=== PATIENT | female | born 1975 | race Caucasian/White ===

== ENCOUNTER 2020-06-19 13:19 | Outpatient (CLI) | payer MEDICAID, SELFPAY ==
--- NOTE | 2020-06-19 13:30 | USCV_ITS ---
Violetta Hurtado Age: 45 Gender: F : 1975 Exam Date: 06/19/2020 13:53 Ordering Phys: Jayant Wild M.D ([email or web address]) Technologist: Britney Wilson [place] [facility] [place] Ind[place]: CP BP: / HR: 82 Rhythm: Sinus Technical Quality: Fair MEASUREMENTS (Male / Female) Normal Values 2D ECHO LV Diastolic Diameter PLAX 3.5 cm 4.2 - 5.9 / 3.9 - 5.3 cm LV Systolic Diameter PLAX 2.9 cm LV Chamber Size 4.4 cm IVS Diastolic Thickness 0.9 cm 0.6 - 1.0 / 0.6 - 0.9 cm IVS Systolic Thickness 1.2 cm LVPW Diastolic Thickness 0.8 cm 0.6 - 1.0 / 0.6 - 0.9 cm LVPW Systolic Thickness 1.0 cm RV Chamber Size 1.8 cm LVOT Diameter 2.0 cm LV Ejection Fraction 2D Teich 38.8 % LA Diameter 2.0 cm LA Width 2.4 cm LA Height 2.8 cm RA Width 1.3 cm RA Height 3.3 cm M-MODE LV Diastolic Diameter MM 4.2 cm 4.2 - 5.9 / 3.9 - 5.3 cm LV Systolic Diameter MM 3.2 cm LV Ejection Fraction MM Teich 47.7 % IVS Diastolic Thickness MM 0.9 cm 0.6 - 1.0 / 0.6 - 0.9 cm IVS Systolic Thickness MM 1.0 cm LVPW Diastolic Thickness MM 0.6 cm 0.6 - 1.0 / 0.6 - 0.9 cm LVPW Systolic Thickness MM 0.9 cm RV Diastolic Diameter MM 0.6 cm Aortic Annulus Diameter 2.1 cm LA Ao Ratio MM 1.0 MV E Point Septal Separation 0.1 cm DOPPLER AV Peak Velocity 114.0 cm/s LVOT Peak Velocity 97.7 cm/s AV Area Cont Eq vti 3.0 cm squared AV Area Cont Eq pk 2.8 cm squared MV Area PHT 4.8 cm squared Mitral E to A Ratio 1.0 MV E' Velocity 31.0 cm/s Mitral E to MV E' Ratio 6.2 Mitral E to LV E' Lateral Ratio 6.0 Mitral E to LV E' Septal Ratio 6.3 TV Peak E Velocity 57.0 cm/s Right Atrial Pressure 3.0 mmHg PV Peak Velocity 62.0 cm/s FINDINGS Left Ventricle Normal left ventricular size, systolic function with no regional wall motion abnormalities. LVEF is 50-55%. Normal diastolic filling pattern. Right Ventricle The right ventricle is normal in size and function. Right Atrium The right atrium is normal in size. Left Atrium The left atrium is normal in size. Mitral Valve Structurally normal mitral valve without significant stenosis or prolapse. There is no mitral regurgitation. Aortic Valve Structurally normal aortic valve without significant sclerosis or stenosis. There is no aortic regurgitation. Tricuspid Valve Structurally normal tricuspid valve without significant stenosis or regurgitation. Insufficient TR jet to calculate RVSP Pulmonic Valve Structurally normal pulmonic valve without significant stenosis. There is no pulmonic regurgitation. Pericardium Normal pericardium without effusion. Aorta Normal ascending aorta dimension. CONCLUSIONS LV systolic function is normal with EF of 50-55% Diastolic function is normal No significant valvular heart disease is noted No comparison studies are available Jayant Wild MD (Electronically Signed) Final Date: 01 Jul 2020 18:20 S
== END 2020-06-19 13:20 | disposition home or self-care (01) ==
LOC: US 13:22
PROVIDERS: PCP Physician Assistant; Visit Provider Internal Medicine
DX: R07.9 Chest pain, unspecified (principal)
CPT/HCPCS: 93306

== ENCOUNTER 2020-08-17 07:31 | Outpatient (CLI) | payer MEDICAID, SELFPAY ==
[2020-08-17 07:36] VITALS: BMI 19.8
--- NOTE | 2020-08-17 08:55 | ECG_ITS ---
[facility] Test Date: 2020-08-17 Pat Name: Violetta Hurtado Department: Room: Gender: Female Hog Scalder: : 1975 Requested By: Jayant Wild Order Number: [id number] Craig MD: Jayant Wild M.D. Interpretive Statements NAME OF STUDY: LEXISCAN SESTAMIBI STRESS TEST INDICATION: [Shortness of Breath; Chest Pain, ] Procedure: At the baseline, the blood pressure was 100/69 mmHg with a heart rate of 56 bpm. The electrocardiogram showed sinus bradycardia, normal axis with normal ST and T's. The Lexiscan was infused over a period of 20 seconds. A total of 0.4 mg of Lexiscan was infused. The stress phase was continued for a total of 5 minutes. Heart rate was at the end of stress phase was 74 bpm and a blood pressure of 95/51 mmHg. The EKG at the peak infusion revealed since normal sinus rhythm with no significant ST-T wave changes. Sestamibi was injected 20 seconds after the Lexiscan infusion. Blood pressure at the end of recovery phase was 96/51 mmHg with a heart rate of 70 bpm. Conclusion: 1. Normal EKG response to Lexiscan infusion 2. No Lexiscan induced chest pain or cardiac arrhythmia. 3. Normal blood pressure and heart rate response. 4. Sestamibi/sestamibi perfusion scan pending; see separate report. Electronically Signed On 09-25-2020 15:15:20 CDT by Jayant Wild M.D. [email or web address]
--- NOTE | 2020-08-17 08:56 | NMCV_ITS ---
NM caesar perf SPECT r/s* [id number] Violetta Hurtado Age: 45 Gender: F : 1975 Exam Date: 08/17/2020 08:53 Ordering Phys: Jayant Wild M.D ([email or web address]) Technologist: ALICE Maloney Exam Location: [facility] Indications: CHEST PAIN STRESS TEST Please see separate stress test report in [facility] for full findings IMAGE PROTOCOL Rest/Stress 1 Radiopharmaceutical Dose (mCi) Administration Site Administered by Rest: Tc-99m 10.8 IV ALICE Morgan Sestamibi Stress:Tc-99m 32.3 IV ALICE Morgan Sestamibi Rest: 17-Aug-2020 60 Discovery 630 Stress: 17-Aug-2020 30 Discovery 630 Images obtained in supine and prone position. Supine position only as patient was unable to lay prone. SPECT RESULTS Technical Quality: Excellent Raw Data Analysis: Normal Image Corrections: No attenuation or motion correction applied Summed Stress Score: 2 Summed Rest Score: 4 Summed Difference Score: 1 PERFUSION FINDINGS There is a small in size mostly reversible perfusion defect in the apical lateral wall. This likely represents a small sized infarct with significant corey-infarct ischemia. However the size of overall abnormality is small. FUNCTIONAL RESULTS (calculated via Gated SPECT) Stress Image LV EF (%): 82 Stress EDV (mL):83 TID: 0.86 Stress ESV (mL):15 FUNCTIONAL FINDINGS: There is normal left ventricular systolic function. IMPRESSIONS 1. Abnormal myocardial perfusion imaging with mostly reversible, small sized area of perfusion defect in the apical lateral wall. Clinical correlation is required 2. LV systolic function is normal Jayant Wild MD (Electronically Signed) Final Date: 17 August 2020 18:33 S
[2020-08-17] MEDS: regadenoson 0.4 Mg/5 ml Syringe IVP (09:34)
[2020-08-17 09:35] VITALS: BP 96/51; PULSE 69
== END 2020-08-17 07:32 | disposition home or self-care (01) ==
PROVIDERS: PCP Physician Assistant; Visit Provider Internal Medicine
DX: R06.02 Shortness of breath (principal); R07.9 Chest pain, unspecified; R00.2 Palpitations
CPT/HCPCS: 78452; 93017; A9500; J2785

== ENCOUNTER → 2020-11-16 16:10 | Outpatient (BNVA) | payer MEDICAID, SELFPAY | PROVIDERS: PCP Physician Assistant; Visit Provider Orthopaedic Surgery | DX: Z01.812 Encounter for preprocedural laboratory examination (principal); Z20.822 Contact with and (suspected) exposure to COVID-19; M67.432 Ganglion, left wrist | CPT/HCPCS: 87635 ==

== ENCOUNTER 2020-11-22 10:52 | Day surgery (SDC) | payer MEDICAID, SELFPAY ==
[2020-11-21 13:19] VITALS: BMI 21.2
[2020-11-22] VITALS (14 sets, daily range): BP systolic 92–117; BP diastolic 48–83; PULSE 44–74; RESP 12–25; TEMP 36.1–36.6; O2SAT 90–99
[2020-11-22] MEDS: sodium chloride 0.9% 1,000 ML 30 ML IV (11:38)
--- NOTE | 2020-11-22 11:42 | P.ANESASSM_ITS ---
Pre-Anesthetic Assessment Pre-Anesthetic Assessment: Height/Weight: Height 1.6 m Weight 54.431 kg Temp Pulse Resp BP Pulse Ox 97.6 F 58 L 15 109/59 94 11/22/20 11:18 11/22/20 11:18 11/22/20 11:18 11/22/20 11:18 11/22/20 11:18 Preop Diagnosis: Ganglion left wrist Proposed Procedure: Operation Date: 11/22/20 12:55 Proposed Procedures p Excision Of Ganglion Cyst 77033 M67.432(Left) - Yonis Mcleod MD Was Beta Levy taken within 24 hours: N/A Was Clonidine taken within 24 hours: N/A Last intake: Intake Last Liquid Date 11/21/20 Last Liquid Time 23:00 Last Solid Date 11/21/20 Last Solid Time 22:00 Social: Social History: Tobacco and No alcohol Exam: Pre-Anes Outpt Exam: alert, oriented x 3 and regular rate & rhythm Airway: Submandibular: WNL Cervical ROM: WNL MP: 2 Dentition: Full Pulmonary: Pulmonary: COPD CV/HEM: CV/HEM: Murmur GI: GI: GERD Neuropsych: Neuropsych: Anxiety Anesthetic Plan: ASA status: 2 Anesthesia: MAC Risk of > 500 ml blood l oss (7ml/kg in children): No Meds/Allergies Current Medications: Current Medications Generic Name Dose Route Start Last Admin Trade Name Freq PRN Reason Stop Dose Admin Sodium Chloride 1,000 mls @ 30 ml s/hr 11/22/20 11:15 11/22/20 11:38 Sodium Chloride 0.9% IV 11/23/20 11:14 30 mls/hr .Q24H MARION Administration PFSH Anesthesia PFSH: Medical History Anxiety Family history of muscular dystrophy GERD (gastroesophageal reflux disease) GERD (gastroesophageal reflux disease) Heart abnormality Surgical History H/O: hysterectomy Hx of appendectomy Hx of cholecystectomy Family History Father Muscular dystrophy Mother No problems noted. Social History Alcohol intake: never Desire information about substance/drug rehabilitation?: No Data Anesthesia Cardiac Studies: Cardiac Event Monitor 05/28/20
--- NOTE | 2020-11-22 13:47 | W.PM.OPSUD ---
Surgery/Procedure H&P Update DATE OF PROCEDURE: November 22, 2020 DATE H&P PERFORMED: 11/12/20 H&P UPDATE INFORMATION: I have reviewed H&P completed within last 30 days PREOP DIAGNOSIS: Ganglion left wrist PLANNED PROCEDURE: Operation Date: 11/22/20 12:55 Proposed Procedures p Excision Of Ganglion Cyst 17534 M67.432(Left) - Yonis Mcleod MD
--- NOTE | 2020-11-22 14:43 | PM.OP ---
Operative Report Date of procedure: November 22, 2020 Pre-op Diagnosis: Ganglion left wrist Post-op diagnosis: same Post-op Findings: Same Procedure Done: Excision ganglion left wrist Pathology: none sent Surgeon: Yonis Mcleod Anesthesia: General Estimated blood loss (mL): 2 Tourniquet time (min): 3 Complications: None Findings: The patient had a fluid-filled ganglion over the dorsal and ulnar aspect of the left wrist Procedure: The patient was taken to the operating room and given a general anesthesia. She was given 2 g of Ancef. Her left upper extremity was prepped and draped in the usual fashion with a tourniquet on the left arm. A timeout was performed. The tourniquet was inflated to 250 mmHg. A transverse incision was made in line with the skin creases carrying us down to the subcutaneous ganglion. Utilizing blunt hemostat the ganglion is elevated the dorsal ulnar capsule and bordering extensor tendons. The capsular attachment was cauterized with Bovie. The tourniquet was deflated. Hemostasis provided with electrocautery. Skin edges were closed with 3-0 Prolene vertical mattress sutures. The incision was covered with Xeroflo gauze 4 x 4's web roll and a compressive Timmy wrap. She was extubated and taken to recovery in stable condition.
--- NOTE | 2020-11-22 14:46 | P.PCN_ITS ---
PACU note PACU note: VSS, Good respiratory effort, report to BIOMETRIC TECHNICIAN Post-Anesthesia Exam: awake
--- NOTE | 2020-11-22 14:46 | PM.PACU ---
PACU note PACU note: VSS, Good respiratory effort, report to HAND CELL TUBER Post-Anesthesia Exam: awake
[2020-11-22] MEDS: fentaNYL 50 mcg/mL INJ 2mL IVP (15:02)
[2020-11-22] MEDS: HYDROcodone-acetaminophen 7.5-325 mg Tablet 1 TAB PO (15:47)
--- NOTE | 2020-11-22 16:00 | ANE.PACU2 ---
Inpatient post-anesthesia follow up: Airway intact: Yes Vital signs: Temperature 97.9 F Pulse Rate 50 Respiratory Rate 18 Blood Pressure 117/70 Pulse Oximetry 95 Oxygen Delivery Me thod Room Air Oxygen Flow Rate Fraction of Inspir ed Oxygen Hydration adequate: Yes Nausea and vomiting: No Pain level: 1 Mental status: Baseline
== END 2020-11-22 16:08 | disposition home or self-care (01) ==
PROVIDERS: PCP Physician Assistant; Visit Provider Orthopaedic Surgery
PROC: (CPT 25111; principal; 2020-11-22 12:45)
DX: M67.432 Ganglion, left wrist (principal); J44.9 Chronic obstructive pulmonary disease, unspecified; K21.9 Gastro-esophageal reflux disease without esophagitis; F41.9 Anxiety disorder, unspecified
CPT/HCPCS: 25111; J2704; J3010; J7030

== ENCOUNTER 2023-06-13 23:27 | Emergency (ER) | payer MEDICAID, SELFPAY ==
[2023-06-13 23:54] VITALS: BP 103/70; PULSE 98; RESP 22; TEMP 36.8; O2SAT 97; BMI 18.3
--- NOTE | 2023-06-14 00:57 | ED_ITS ---
HPI - URI/Sore Throat General: Chief Complaint: Upper Respiratory Infection Stated Complaint: Right ear pain Time Seen by Provider: 06/14/23 00:08 History of Present Illness: 48-year-old female who has been sick for the last 3 days. She presents with cough, sinus congestion, and right ear pain. She states that her right ear pain is pretty excruciating. She is having trouble hearing out of that side. Cough is nonproductive. Associated symptoms: Reports abdominal pain, chills, chest pain, fever(s) and nausea Review of Systems Const: Reports: fever(s), chills and body aches Card: Reports: chest pain and palpitations GI: Reports: abdominal pain and nausea PFS ED PFSH: Medical History GERD (gastroesophageal reflux disease) Anxiety Heart abnormality Family history of muscular dystrophy GERD (gastroesophageal reflux disease) Surgical History Hx of appendectomy Hx of cholecystectomy H/O: hysterectomy Family History Father Muscular dystrophy Mother No problems noted. Social History Alcohol intake: never Substance/Drug Use: current Substance/Drug use frequency: few times a week Physical Exam Const: COMMON NORMALS: no acute distress GENERAL APPEARANCE: cooperative HENMT: COMMON NORMALS: normocephalic, atraumatic and Normal external nose present HEAD & SCALP: normocephalic and atraumatic FACE & SINUS: normal facial exam NOSE: Normal external nose present and Nasal discharge present TYMPANIC MEMBRANE: TM abnormal TM laterality: right Details: bulging, dull and erythematous THROAT: postnasal drainage Eye: COMMON NORMALS: EOMs intact bilaterally and conjunctivae normal CONJUNCTIVA: Yes conjunctivae normal Neck/C-Spine: GENERAL: Yes trachea midline Chest: CHEST: Yes Symmetrical chest wall rise Resp: COMMON NORMALS: No use of accessory muscles Course Vital Signs: Vital signs: Vital Signs Temperature 98.2 F 06/13/23 23:54 Pulse Rate 106 H 06/14/23 01:11 Respiratory Rate 16 06/14/23 01:08 Blood Pressure 123/86 06/14/23 01:11 Pulse Oximetry 100 06/14/23 01:11 Oxygen Delivery Me thod Room Air 06/13/23 23:54 MDM - URI/Sore Throat Medical Decision Making 48-year-old female with upper respiratory symptoms and significant right ear pain. Otitis media on exam. Will treat. Return for worsening symptoms. No radiology studies performed this visit Discharge Plan Discharge Patient Disposition: Home Clinical Impression: Otitis media Qualifiers: Otitis media type: suppurative Chronicity: acute Laterality: right Recurrence: non-recurrent Spontaneous tympanic membrane rupture: without spontaneous rupture Qualified Code(s): H66.001 - Acute suppurative otitis media without spontaneous rupture of ear drum, right ear Condition: Stable Prescriptions: New amoxicillin-pot clavulanate 875-125 mg tablet 1 tab PO Q12H Qty: 20 0RF ketorolac 10 mg tablet 10 mg PO TID PRN (Reason: pain) Qty: 10 0RF No Action omeprazole 40 mg capsule,delayed release(DR/EC) 40 mg PO DAILY bupropion HCl [Wellbutrin SR] 100 mg tablet sustained-release 12 hr 100 mg PO DAILY gabapentin 100 mg capsule 300 mg PO TID nitroglycerin 0.4 mg tablet, sublingual 0.4 mg sublingual Q5M PRN (Reason: chest pain) Qty: 25 3RF Rx Instructions: do not exceed 3 doses per episode Discharge Orders: Discharge ED (Routine); Ordered 06/14/23 Ordered By: Joshua White Referrals: Krysten Batista PA [Primary Care Provider] - Patient Instructions: Ear Infection (ED), Opioid Safety, Pain Management Activity Restrictions/Additional Instructions: Your doctor next week. Return for problems. Coding Level of Care Code ED Nursing Aide for Philippe Saravia
[2023-06-14 01:02] VITALS: BP 123/86; PULSE 92; O2SAT 97
[2023-06-14 01:08] VITALS: RESP 16
[2023-06-14] MEDS: dexamethasone 10 mg/mL INJ 8 MG PO (01:08)
[2023-06-14] MEDS: amoxicillin-clav 875-125 mg Tablet 1 TAB PO (01:08)
[2023-06-14] MEDS: oxyCODONE-APAP 5-325 mg Tablet 2 TAB PO (01:08)
[2023-06-14 01:11] VITALS: BP 123/86; PULSE 106; O2SAT 100
== END 2023-06-14 01:15 | disposition home or self-care (01) ==
PROVIDERS: Emergency Provider Emergency Medicine; PCP Physician Assistant
DX: H66.001 Acute suppurative otitis media without spontaneous rupture of ear drum, right ear (principal)
CPT/HCPCS: 99283; J1100

== ENCOUNTER → 2023-12-14 08:56 | Outpatient (BNVA) | payer SELFPAY | PROVIDERS: Visit Provider Nurse Practitioner Family | DX: L02.415 Cutaneous abscess of right lower limb (principal) | CPT/HCPCS: 87070; 87075; 87205 ==